=== PATIENT | male | born 1955 | race Caucasian/White ===

== ENCOUNTER 2017-06-09 16:00 | Emergency (ER) | payer OTHER ==
[~2017-06-09] VITALS: Ht 175.3 cm; Wt 65.7 kg
[~2017-06-09 16:00] MED LIST: ALPR2TAB4; ALPR2TAB5 PO; DIAZ10TA4 PO; GABA600T PO; Gabapentin PO; LOVA40TA2 PO; LOVA40TA65; METF500T PO; METH-356 PO; METHADONE HCL PO; METO-93; METO1TAB18 PO; OXYC-307 PO; OXYC10TA6 PO; OXYC1TAB8
[2017-06-09] MEDS ORDERED: ONDANSETRON 2MG/ML, 2ML IVPush ONE (16:30)
[2017-06-09] MEDS ORDERED: SODIUM CHLORIDE FLUSH 10ML SYR IVF ONE (16:30)
[2017-06-09] MEDS ORDERED: SODIUM CHLORIDE 0.9% 1,000ML IVBOLUS ONE (16:30)
[2017-06-09] MEDS ORDERED: GABA300C10 PO (16:48)
[2017-06-09] MEDS ORDERED: MULT-6 PO (16:48)
[2017-06-09] MEDS ORDERED: CYAN1TAB29 PO (16:48)
[2017-06-09 17:06] LABS: ASPARTATE AMINO TRANSFERASE 26 U/L (15-37); BLOOD UREA NITROGEN 9 mg/dL (7-18)
[2017-06-09 17:46] LABS: HEMATOCRIT 43.8 % (39.2-51.8); HEMOGLOBIN 14.4 g/dL (13.7-18.0); WHITE BLOOD COUNT 9.2 x10^3/uL (3.4-10)
[2017-06-09] MEDS ORDERED: ONDANSETRON 2MG/ML, 2ML ONE (18:04)
[2017-06-09] MEDS ORDERED: MORPHINE SULFATE 4 MG/ML, 1ML ONE (18:10)
[2017-06-09] MEDS ORDERED: OMNIPAQUE 350 MG/ML, 100ML BOTTLE ONE (18:28)
[2017-06-09] MEDS ORDERED: MORPHINE SULFATE 4 MG/ML, 1ML IVPush PRN (18:30)
[2017-06-09 19:36] VITALS: BP 105/59
== END 2017-06-09 20:14 | disposition left against medical advice (07) ==
LOC: ED 16:33
DX: K56.69 Other intestinal obstruction (principal); K56.41 Fecal impaction; J44.9 Chronic obstructive pulmonary disease, unspecified; E78.00 Pure hypercholesterolemia, unspecified; I10 Essential (primary) hypertension; E11.9 Type 2 diabetes mellitus without complications
CPT/HCPCS: 36415; 74020; 74177; 80053; 81003; 83690; 85025; 96361; 96374; 96375; 99285; J2405; J7030; Q9967

== ENCOUNTER → 2018-07-25 | Outpatient (CLI) | payer OTHER ==
[~2018-07-25] MED LIST changes: +CYAN1TAB29 PO; +GABA300C10 PO; +LOVA-41; -LOVA40TA65; +MULT-6 PO
== END | disposition home or self-care (01) ==
LOC: CVU 14:41
PROVIDERS: ATTEND Internal Medicine Critical Care Medicine
DX: J96.11 Chronic respiratory failure with hypoxia (principal); I25.2 Old myocardial infarction; Z72.0 Tobacco use; E11.9 Type 2 diabetes mellitus without complications
CPT/HCPCS: 93306

== ENCOUNTER → 2018-09-20 | Outpatient (CLI) | payer OTHER ==
[~2018-09-20] MED LIST changes: +OMNIPAQUE 350 MG/ML, 100ML BOTTLE ONE
== END | disposition home or self-care (01) ==
LOC: CFH 11:58
PROVIDERS: ATTEND Internal Medicine Critical Care Medicine
DX: J47.9 Bronchiectasis, uncomplicated (principal)
CPT/HCPCS: 71250; 71275; 82565; Q9967